=== PATIENT | female | born 1965 | race Caucasian/White ===

== ENCOUNTER 2021-04-01 11:53 | Emergency (ER) | payer MEDICAID ==
[~2021-04-01] VITALS: Ht 147.3 cm; Wt 118.0 kg
[2021-04-01 14:30] LABS: BASOPHILS % 0.8 % (0.0-2.0); EOSINOPHILS % 0.7 % (0.0-5.0); HEMATOCRIT. 36.6 % (36.0-48.0); HEMOGLOBIN. 11.8 g/dL (12.0-16.0); LYMPHOCYTES % 18.9 % (20.0-50.0); MEAN CORPUSCULAR HEMOGLOBIN 26.3 pg (28.0-32.0); MEAN CORPUSCULAR VOLUME 81.3 fL (81.0-99.0); MEAN PLATELET VOLUME 7.9 fl (7.4-10.4); MONOCYTES % 7.6 % (2.0-8.0); PLATELET 366 x1000/uL (130-400); RED CELL DISTRIBUTION WIDTH 14.7 % (11.6-14.6)
[2021-04-01 14:38] LABS: CHLORIDE 105 mEq/L (98-107)
[2021-04-01 14:50] LABS: B-HCG QUANTITATIVE < 1 mIU/mL (<3)
[2021-04-01 15:37] VITALS: BP 131/63
== END 2021-04-01 15:38 | disposition home or self-care (01) ==
LOC: ER 11:53
DX: N93.9 Abnormal uterine and vaginal bleeding, unspecified (principal); Z88.0 Allergy status to penicillin; Z86.39 Personal history of other endocrine, nutritional and metabolic disease; Z90.49 Acquired absence of other specified parts of digestive tract; Z98.890 Other specified postprocedural states
CPT/HCPCS: 36415; 76830; 76856; 80053; 84702; 85025; 86850; 86900; 99284